=== PATIENT | male | born 1935 | race Caucasian/White ===

== ENCOUNTER 2025-01-07 19:33 | Emergency (ER) | payer OTHER, SELFPAY ==
[2025-01-07 19:37] VITALS: BMI 27.3
[2025-01-07 19:42] VITALS: BP 145/64
--- NOTE | 2025-01-07 19:55 | ED.GENMED ---
History of Present Illness
General
Chief Complaint: Fall
Source: patient
Exam Limitations: none
Time Seen by Provider: 01/07/25 19:50
Nursing documentation reviewed up to this point in time: agreed with
History of Present Illness
History of Present Illness:
Note:
CHIEF COMPLAINT(S)
Fall with head injury.
HISTORY OF PRESENT ILLNESS
The patient is an 89-year-old male with past medical history of asthma, hypertension, constipation, GERD, depression, who presents to the ER today following a fall at home. The fall occurred indoors when the patient tripped over his own feet in a
tight space between two beds, leading to a backward fall. The patient hit the back of his head on the carpet. Patient lives in a intermediate community. After the fall, he was coherent and able to turn off his watch, walk downstairs, and alert the
division manager to call for emergency services. The patient reports feeling a little sore in the neck, more consistent with a muscular strain, and a sensation of muscle tightness, particularly due to a previous shoulder injury from six months ago for
which he underwent physical therapy. There is no associated dizziness, lightheadedness, vomiting, visual changes, numbness, or tingling. He has declined any medication for the pain, noting it as minor. He has no headache. He is able to ambulate
without any difficulties. Patient expresses concern because he had a friend who fell recently and was found to have a head bleed. Patient is concerned because he wants to be present to take care of his who is now in [facility].
PHYSICAL EXAM
- Nursing notes reviewed and vital signs reviewed.
General: Patient is well appearing and in no acute distress; non-toxic
Skin: Warm and dry, no rashes or lesions
Head: Small hematoma noted to the posterior scalp, no lacerations, no tenderness of the facial bones
Eyes: Sclera non-icteric. EOMs intact.
Neck: No midline spinal tenderness, some paracervical tenderness noted, c-collar in place
Cardiac: Regular rate and rhythm, no murmurs, no tenderness palpation of the chest wall
Peripheral Vascular: No lower extremity swelling or edema
Pulm: Normal respiratory effort
Abdomen: No abdominal tenderness to palpation
Neuro: CN II-XII intact, no focal neurologic deficits. 5 out of 5 strength in bilateral upper and lower extremities. Normal finger-nose, heel ca testing.
Psychiatric: Appropriate mood and affect.
PLAN
The patient is scheduled for a computed tomography (CT) scan to rule out any intracranial bleeding.
CT of the cervical spine
DIFFERENTIAL DIAGNOSIS
The Differential Diagnosis includes, in no particular order and is not limited to:
- Minor head trauma
- Concussion
- Subdural hematoma
- Epidural hematoma
- Cervical strain
- Muscular strain
- Subarachnoid hemorrhage
- Stroke
- Transient ischemic attack
- Syncope
SUMMARY OF ENCOUNTER
The patient was seen in the emergency department following a fall with head impact. The main concern was assessing for any possible intracranial injury due to the head trauma. The patient exhibited soreness in the neck region consistent with
muscular strain. A CT scan was ordered to rule out any intracranial pathology.
I was alerted by nursing staff that patient had some hip pain when he went to go use the bathroom when he was ambulating. I had patient fully undressed into a gown. On looking at his hip, he has no tenderness to palpation. He has full range of
motion and he has no pain with internal/external rotation or abduction abduction. Suspect contusion or soft tissue injury, considering normal gait, no pain full range of motion no indication for x-ray at this time. Offered x-ray patient patient
states that he would rather follow-up with PCP if things get worse. He will take Tylenol at home if he needs it for pain.
MEDICATION RECONCILIATION
The patient declines taking any medication at this time.
DIAGNOSIS
- Minor Head Trauma (ICD-10: S09.90XA)
- Cervical Strain (ICD-10: S16.1XXA)
89-year-old male presents emergency department today for concerns of blunt head trauma following a fall. He was standing in his apartment when he lost his footing and fell back hitting his head. He not was consciousness. He got up on his own
right away and alerted the apartment staff members to call an ambulance for him. On physical exam he is well-appearing in no acute distress. He is neurologically intact. He is a hematoma on his posterior scalp with no open lacerations. His CT
scan shows no acute intracranial abnormality there is show small left frontotemporal scalp soft tissue contusion. Cervical spine shows no acute osseous abnormality does show degenerative changes at C6 and C7. Discussed findings with patient.
Patient stable for discharge.
Past History
Past History
ED Past Medical History: Asthma, HTN and Psychiatric (anxiety/panic disorder)
ED Past Surgical History: Orthopedic
Social History
Tobacco: Non-smoker
Living: with family
Review of Systems
Review of Systems
All Other Systems: ROS reviewed and negative except as documented in HPI and ROS
Phy Exam
Physical Exam
Physical Exam:
see hpi
Course
Orders/Labs/Results
Orders:
Orders
01/07/25 19:46
CT Head W/o Iv Contrast Urgent
Comment:
Reason For Exam: fall, headstrike
Cervical Spine wo Contrast CT [CT Cervical Spine W/o Iv Contr] Urgent
Comment:
Reason For Exam: fall, headstrike, neck pain
Vital Signs
Initial and Last Documented VS:
Initial Vital Signs
Temp
97.8 F
01/07/25 19:37
Last Documented Vital Signs
Temp Pulse Resp BP Pulse Ox
97.8 F 66 16 145/64 95
01/07/25 19:37 01/07/25 19:42 01/07/25 19:42 01/07/25 19:42 01/07/25 19:55
*Pulse Oximetry
SaO2: 95
Oxygen Mode of Delivery: Room air
Patient hypoxic: no
*Critical Care Note
Total Time (30-74mins, 75-104mins- exclusive of procedures): Not Applicable
ED Attending Note
-
Portions of this chart may have been created with voice recognition software.� Occasional wrong word or��sound alike� substitutions may have occurred due to the inherent limitations of voice recognition software.
Discharge Plan
Departure
Patient Disposition: Home (Routine Discharge)
Date of Disposition: 01/07/25
Time of Disposition: 21:47
Patient with high blood pressure during this ER visit?: Yes
Condition: Good
Discharge Problem:
Fall, Contusion of scalp
Instructions: Contusion (DC), Preventing falls in adults, BLOOD PRESSURE
Prescriptions:
No Action
acetazolamide 125 MG tablet
125 mg PO DAILY
mirtazapine [Remeron] 45 MG tablet
45 mg PO HS
erythromycin 1 APPLIC ointment
1 applic ophthalmic (eye) HS
ginkgo biloba [Ginkgo Biloba Plus] 60 MG capsule
2 capsules PO BID
celecoxib 200 MG capsule
200 mg PO BID
aspirin 81 MG tablet,delayed release (DR/EC)
162 mg PO DAILY
C,E,copper,zinc 68-[id number]-hag-sagrario 1 CAP capsule
1 cap PO BID
levofloxacin 500 MG tablet
500 mg PO DAILY Qty: 5 0RF
Referrals:
Luna Real CRNP [Family Provider, Family Practice]
Activity Restrictions/Additional Instructions:
Please follow-up with your primary care provider. Please continue to monitor your symptoms. PLEASE RETURN TO THE ER SHOULD YOU DEVELOP ACUTE WORSENING OF YOUR SYMPTOMS, PERSISTENT HEADACHES, INTRACTABLE NAUSEA OR VOMITING, BLURRY VISION, VISUAL
LOSS, CHEST PAIN, SHORTNESS OF BREATH, OR ANY OTHER SIGNS OR SYMPTOMS WORRISOME TO YOU.
Interventions
Interventions:
*Risk Screen - Suicide Last Done: 01/07/25 19:37
*General Assessment Last Done: 01/07/25 19:37
*Neglect/Abuse Screening Last Done: 01/07/25 19:37
*ED- Fall Risk Assessment Last Done: 01/07/25 19:37
*ED COVID-19 Vaccine History Last Done: 01/07/25 22:40
*Nursing Disposition Last Done: 01/07/25 22:40
ED- Neurological Assessment Last Done: 01/07/25 19:52
Discharge Date and Time
Discharge Date/Time: 01/07/25 22:41
Print Language: GREEK
== END 2025-01-07 22:41 | disposition home or self-care (01) ==
LOC: EMR 19:33
PROVIDERS: EMERGENCY PHYSICIAN Emergency Medicine; FAMILY PHYSICIAN Nurse Practitioner
DX: S00.03XA Contusion of scalp, initial encounter (principal); S16.1XXA Strain of muscle, fascia and tendon at neck level, initial encounter; W01.0XXA Fall on same level from slipping, tripping and stumbling without subsequent striking against object, initial encounter; J45.909 Unspecified asthma, uncomplicated; I10 Essential (primary) hypertension
CPT/HCPCS: 99284; 70450; 72125